=== PATIENT | male | born 1970 | race Two or more races ===

== ENCOUNTER 2019-02-08 08:47 | Emergency (ER) | payer MEDICAID ==
[~2019-02-08] VITALS: Ht 160 cm; Wt 63.5 kg
[2019-02-08] MEDS ORDERED: SERTRALINE HCL25 MG ORAL (08:58)
[2019-02-08] MEDS ORDERED: AMLODIPINE BESY10 MG ORAL (08:58)
[2019-02-08] MEDS ORDERED: LISINOPRIL5 MG ORAL (08:58)
[2019-02-08 09:01] VITALS: BP 137/87
--- NOTE | 2019-02-08 09:02 | NUR ---
ED Nurse Note: Pt walked in to ER c/o Rt rib sharp pain 06/10. pt aao x4 and calm and cooperative. per pt, he could not sleep due to severe pain. pt had Rt kidney removal in 1990 but has not had any reaction since. Vital signs stable as documented.
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
[2019-02-08] MEDS ORDERED: Isovue-300 100ml vial INJ PRN (09:15)
[2019-02-08 09:31] LABS: APPEARANCE,URINE CLEAR; BASOPHILS % (AUTO) 0.9 % (0.0-2.0); BILIRUBIN, URINE NEGATIVE (NEGATIVE); COLOR,URINE PALE YELLOW; EOSINOPHILS % (AUTO) 3.2 % (0.0-3.0); GLUCOSE, URINE (UA) NEGATIVE (NEGATIVE); HEMATOCRIT 39.8 % (42.0-52.0); HEMOGLOBIN 13.6 G/DL (14.2-18.0); KETONES,URINE NEGATIVE (NEGATIVE); LEUKOCYTE ESTERASE ,URINE NEGATIVE (NEGATIVE); LYMPHOCYTES % (AUTO) 21.6 % (20.0-45.0); MEAN CORPUSCULAR VOLUME 85 FL (80-99); MONOCYTES % (AUTO) 6.7 % (1.0-10.0); NEUTROPHILS % (AUTO) 67.6 % (45.0-75.0); NITRITE,URINE NEGATIVE (NEGATIVE); PH,URINE 6 (4.5-8.0); PLATELET COUNT 382 K/UL (150-450); PROTEIN,URINE 3+ (NEGATIVE); RED BLOOD COUNT 4.71 M/UL (4.70-6.10); RED CELL DISTRIBUTION WIDTH 12.5 % (11.6-14.8); UROBILINOGEN,URINE NORMAL MG/DL (0.0-1.0); WHITE BLOOD COUNT 5.5 K/UL (4.8-10.8)
[2019-02-08 09:44] LABS: ANION GAP 10 mmol/L (5-15); BLOOD UREA NITROGEN 28 mg/dL (7-18); CALCIUM 9.1 MG/DL (8.5-10.1); CARBON DIOXIDE 27 MMOL/L (21-32); CHLORIDE 103 MMOL/L (98-107); CREATININE 1.7 MG/DL (0.55-1.30); POTASSIUM 4.6 MMOL/L (3.5-5.1); SODIUM 139 MMOL/L (136-145)
[2019-02-08 09:48] LABS: ALANINE AMINOTRANSFERASE 27 U/L (12-78); ALBUMIN 3.7 G/DL (3.4-5.0); ALBUMIN/GLOBULIN RATIO 0.8 (1.0-2.7); ALKALINE PHOSPHATASE 119 U/L (46-116); ASPARTATE AMINO TRANSFERASE 27 U/L (15-37); BILIRUBIN,TOTAL 0.2 MG/DL (0.2-1.0); CREATINE KINASE 159 U/L (26-308)
[2019-02-08 09:49] LABS: INR 0.9 (0.9-1.1)
--- NOTE | 2019-02-08 10:29 | Diagnostic Imaging Report ---
Indication: Chest pain Technique: One view of the chest Comparison: none Findings: The lungs and pleural spaces are clear. The heart size is normal. There are surgical clips in the upper abdomen Impression: No acute process
[2019-02-08 11:00] VITALS: BP 126/74
--- NOTE | 2019-02-08 11:47 | NUR ---
ED Nurse Note: CT scan is not available. MARLEE made aware.
[2019-02-08 13:05] VITALS: BP 132/88
--- NOTE | 2019-02-08 14:00 | NUR ---
ED Nurse Note: received patient in bed from Dean Arroyo RN. patient is stable in bed, awaiting for transfer to [facility] for CT.
[2019-02-08 14:08] VITALS: BP 128/89
--- NOTE | 2019-02-08 14:41 | NUR ---
ED Nurse Note: [facility] IS HERE TO EXPORT COORDINATOR THE PATIENT. REPORT GIVEN TO EMS, MADE SURE THEY BRING THE PATIENT BACK TO ER, EXPLAINED BY VERNA DELAROSA WELL
--- NOTE | 2019-02-08 14:50 | NUR ---
ED Nurse Note: patient being transferred to [facility] with all of his belongings.
[2019-02-08] MEDS ORDERED: ROBAXIN500 MG PO (16:27)
[2019-02-08] MEDS ORDERED: TRAMADOL HCL50 MG ORAL (16:27)
[2019-02-08] MEDS ORDERED: TYLENOL325 MG ORAL (16:27)
--- NOTE | 2019-02-08 17:32 | NUR ---
ED Nurse Note: patient came back from [facility] in stable condition
[2019-02-08 19:07] VITALS: BP 121/78
--- NOTE | 2019-02-08 19:08 | NUR ---
ER DISCHARGE NOTE: Patient is cleared to be discharged per ERMD, pt is aox4, on room air, with stable vital signs. pt was given dc and prescription instructions, pt was able to verbalize understanding of following up with his primary doctor, pt id band and iv site removed without complications. pt is able to ambulate with steady gait. pt took all belongings.
== END 2019-02-08 19:08 | disposition home or self-care (01) ==
LOC: EMR 09:15
DX: R10.9 Unspecified abdominal pain (principal); M62.838 Other muscle spasm; N28.9 Disorder of kidney and ureter, unspecified; Z90.5 Acquired absence of kidney; I10 Essential (primary) hypertension; Z87.891 Personal history of nicotine dependence; K76.0 Fatty (change of) liver, not elsewhere classified
CPT/HCPCS: 36415; 71045; 80053; 81003; 82550; 83690; 84484; 85025; 85610; 85730; 93005; 99283